=== PATIENT | male | born 1950 | race Caucasian/White ===

== ENCOUNTER → 2019-06-25 09:11 | Outpatient (BNVA) | payer MEDICARE, OTHER, SELFPAY | PROVIDERS: Family Provider Registered Nurse; Visit Provider Registered Nurse | DX: I10 Essential (primary) hypertension (principal); M10.9 Gout, unspecified; E78.5 Hyperlipidemia, unspecified; M77.8 Other enthesopathies, not elsewhere classified | CPT/HCPCS: 80053; 80061; 85025 ==

== ENCOUNTER 2019-12-10 08:33 | Outpatient (CLI) | payer MEDICARE, OTHER, SELFPAY ==
--- NOTE | 2019-12-10 08:54 | CT_ITS ---
WS: [id number] CT ANGIOGRAM CAROTID ARTERIES HISTORY: CAROTID ARTERY STENOSIS TECHNIQUE: CT angiogram is performed of the carotid arteries. During arterial injection imaging is ob tained from the skull base to the aortic arch in 1.25 mm imaging. Coronal and sagittal reformats are submitted, MIP imaging also reviewed. Additional multiplanar reformats of the carotid arteries are alexander bmitted. NASCET criteria utilized. All CT scans at [facility] use at least one of these d ose optimization techniques: automated exposure control; mA and/or kV adjustment per patient size (in cludes targeted exams where dose is matched to clinical indication); or iterative reconstruction. CONTRAST: Omnipaque 350; 95 mL IV. DLP: 979.87 mGycm COMPARISON: 12/11/2018 and 11/08/2018 Right carotid: Common carotid artery: Common carotid artery is patent. Internal carotid artery: Known chronic occlusion of the cervical ICA. External carotid artery: Patent. Left carotid: Common carotid artery: Arises normally from the aortic arch. No significant stenosis Internal carotid artery: Prior LEFT carotid endarterectomy. Proximal LEFT ICA stenosis with circumfer ential intimal thickening. Stenosis calculated at 63% which is similar to the prior study. No progres abena. Intracranial carotid artery is bulbous within the cavernous sinuses. Appearance is similar to t he prior study with no definite definite aneurysm. External carotid artery: Patent. Right vertebral artery: Very small caliber RIGHT vertebral artery. Vertebral artery appears occluded at its origin but reconstitutes into a very small vertebral artery at the C4 level. Communicates with the PICA distally. Left vertebral artery: Unremarkable. Arises normally from the left subclavian artery. Subclavian arteries: No stenosis or abnormality identified. Upper thorax: Normal. Thyroid gland: Normal. Osseous structures: Moderate degenerative disc disease at C5-[address]/CT angio neck 29081 IMPRESSION: 1. Known, completely occluded RIGHT ICA. 2. LEFT proximal ICA stenosis 63%. Similar to 12/11/2018. 3. Small caliber RIGHT vertebral artery with proximal occlusion and distal rec onstitution.
[2019-12-10] MEDS: iohexol 350 mg/mL 100 mL Btl IV (09:31)
[2019-12-17 10:02] LABS: Blood Urea Nitrogen 15 mg/dL (8-23); Glomerular Filtration Rate 83.9 mL/min (90-130)
== END 2019-12-10 08:34 | disposition home or self-care (01) ==
LOC: RADWPI 08:38
PROVIDERS: Family Provider Registered Nurse; PCP Registered Nurse; Visit Provider Thoracic Surgery (Cardiothoracic Vascular Surgery)
DX: I65.23 Occlusion and stenosis of bilateral carotid arteries (principal)
CPT/HCPCS: 70498; 82565; 84520; Q9967

== ENCOUNTER 2020-07-30 11:34 | Outpatient (CLI) | payer MEDICARE, OTHER, SELFPAY ==
--- NOTE | 2020-07-30 11:45 | USCV_ITS ---
Tank Trujillo Age: 70 Gender: M : 1950 Exam Date: 07/30/2020 11:53 Ordering Phys: Leon Cobos MD (Andy) ([email or web address] [place] Technologist: Naheed Perez [place] [facility] [place]: RT OCCLUSION, LT ENDART Risk Factors: Previous Vascular Surgery: Right Brachial BP: / Left Brachial BP: / Right Left Velocity (cm/s) Spectral Plaque Velocity (cm/s) Spectral Plaque Syst/Diast Broadening Syst/Diast Broadening 166.90/ Prox CCA 102.50/ 24.10 130.70/14.10 Mid CCA 96.50 / 18.10 124.70/14.10 Distal CCA 122.60/ 28.10 / Prox ICA 172.90/ 48.30 Homo / Mid ICA 239.30/ 78.40 Homo / Distal ICA 229.20/ 68.40 Homo 92.50 ECA 104.50 ICA/CCA 2.48 Antegrade Vertebral Antegrade 136.7/ 18.10 cm/s 66.30/ 16.10 cm/s 0 Tri Subclavian Tri FINDINGS Heavy heterogeneous plaques at the right bifurcation. No Doppler flow signals in the right internal carotid artery. Antegrade flow in the vertebral artery on the right side with a high resistance flow pattern Moderate to heavy heterogeneous plaques in the left internal carotid artery throughout. CONCLUSIONS 1. 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 2. Elevated Doppler flow velocity with abnormal flow pattern suggestive of distal occlusive disease in the right vertebral artery 3. Elevated Doppler flow velocity and flow characteristics suggesting 50 to 69% of the left proximal ICA. Diffuse hemodynamically significant stenosis in the mid and distal segment of this artery Because of the difference in the technical quality, comparison with the previous study on 11/08/2018 is difficult. Consider CTA, to better evaluate the vertebral artery on the right side and distal ICA on the left side Dr Cristino Blair MD [facility] (Electronically Signed) Final Date: 31 July 2020 09:29 S
== END 2020-07-30 11:35 | disposition home or self-care (01) ==
LOC: RAD 11:36
PROVIDERS: PCP Registered Nurse; Visit Provider Thoracic Surgery (Cardiothoracic Vascular Surgery)
DX: I65.21 Occlusion and stenosis of right carotid artery (principal)
CPT/HCPCS: 93880

== ENCOUNTER → 2020-09-30 11:52 | Outpatient (BNVA) | payer MEDICARE, OTHER, SELFPAY | PROVIDERS: PCP Registered Nurse; Visit Provider Registered Nurse | DX: I10 Essential (primary) hypertension (principal); E78.5 Hyperlipidemia, unspecified; M25.431 Effusion, right wrist; M25.531 Pain in right wrist | CPT/HCPCS: 80053; 80061; 85025 ==

== ENCOUNTER 2021-04-12 14:22 | Outpatient (CLI) | payer MEDICARE, OTHER, SELFPAY ==
--- NOTE | 2021-04-12 15:00 | USCV_ITS ---
Tank Trujillo Age: 70 Gender: M : 1950 Exam Date: 04/12/2021 14:54 Ordering Phys: Leon Cobos MD (Andy) ([email or web address] [place]) Technologist: THU [place] [facility] [place]ication: OCCLUISON AND STENOSIS OF BILATERAL CAROTID ARTERIES Risk Factors: Previous Vascular Surgery: Right Brachial BP: / Left Brachial BP: / Right Left Velocity (cm/s) Spectral Plaque Velocity (cm/s) Spectral Plaque Syst/Diast Broadening Syst/Diast Broadening 108.50/11.70 Prox CCA 108.90/ 31.80 91.70/ 8.50 Mid CCA 106.50/ 18.40 66.80/ 11.70 Distal CCA 69.10 / 14.00 / Prox ICA 186.70/ 51.30 / Mid ICA 155.10/ 47.30 / Distal ICA 96.00 / 28.90 98.70 ECA 124.90 ICA/CCA 1.46 Antegrade Vertebral Antegrade 45.10/ 26.40 cm/s 85.40/ 30.20 cm/s Tri Subclavian Tri 84.60 92.60 CONCLUSIONS Chronic occlusion Right ICA unchanged since 07/30/20 Left ICA stenosis 50-69%. Normal antegrade Doppler flow noted in the right vertebral artery. Normal antegrade Doppler flow noted in the left vertebral artery. Bill Irby MD (Electronically Signed) Final Date: 12 April 2021 17:08 S
== END 2021-04-12 14:23 | disposition home or self-care (01) ==
LOC: RAD 14:23
PROVIDERS: PCP Registered Nurse; Visit Provider Thoracic Surgery (Cardiothoracic Vascular Surgery)
DX: I65.23 Occlusion and stenosis of bilateral carotid arteries (principal)
CPT/HCPCS: 93880

== ENCOUNTER → 2021-04-13 11:27 | Outpatient (BNVA) | payer MEDICARE, OTHER, SELFPAY | PROVIDERS: PCP Registered Nurse; Visit Provider Registered Nurse | DX: J12.9 Viral pneumonia, unspecified (principal) | CPT/HCPCS: 85025 ==